=== PATIENT | female | born 1970 | race Caucasian/White ===

== ENCOUNTER → 2016-09-07 | Outpatient (CLI) | payer BC ==
[~2016-09-07] MED LIST: GUAI100S6 PO; IBUP-1105 PO; PRENTAB26 PO; SERT50TA PO
[2016-09-07 10:03] LABS: ALT/SGPT 20 U/L (12-78); BLOOD UREA NITROGEN 9 mg/dl (7-18); BUN/CREATININE RATIO 12.2 (10-20); CALCIUM 8.9 mg/dl (8.5-10.1); CARBON DIOXIDE 27 mmol/L (21-32); CHLORIDE 105 mmol/L (98-107); CHOLESTEROL 231 mg/dl (0-200); GLUCOSE 103 mg/dl (70-99); POTASSIUM 3.8 mmol/L (3.5-5.1); SODIUM 140 mmol/L (136-145)
[2016-09-07 10:06] LABS: ALKALINE PHOSPHATASE 46 U/L (45-117); AST/SGOT 12 U/L (15-37); CHOLESTEROL/HDL RATIO 4.9; HDL CHOLESTEROL 47 mg/dl; LDL CHOLESTEROL CALCULATED 154 mg/dl; TRIGLYCERIDES 152 mg/dl (0-150); VERY LOW DENSITY LIPOPROT CALC 30 mg/dl
== END | disposition home or self-care (01) ==
LOC: C.LAB 08:31
PROVIDERS: ATTEND Nurse Practitioner Family
DX: E78.5 Hyperlipidemia, unspecified (principal); Z13.1 Encounter for screening for diabetes mellitus

== ENCOUNTER → 2017-03-26 | Outpatient (CLI) | payer BC ==
--- NOTE | 2017-03-29 08:02 | MAMMOGRAPHY REPORT ---
BILATERAL DIGITAL SCREENING MAMMOGRAM TOMOSYNTHESIS WITH CAD: 03/26/2017 CLINICAL HISTORY: Routine screening. Patient has no complaints. TECHNIQUE: Breast tomosynthesis in addition to standard 2D mammography was performed. Current study was also evaluated with a Computer Aided Detection (CAD) system. COMPARISON: Comparison is made to exam dated: 08/15/2013 mammogram - [facility]. BREAST COMPOSITION: The tissue of both breasts is almost entirely fatty. FINDINGS: No suspicious masses, calcifications, or areas of architectural distortion are noted in ei ther breast. There has been no significant interval change compared to prior exams. IMPRESSION: ACR BI-RADS CATEGORY 1: NEGATIVE There is no mammographic evidence of malignancy. A 1 year screening mammogram is recommended. The pa tient will receive written notification of the results. Approximately 10% of breast cancers are not detected with mammography. A negative mammographic report should not delay biopsy if a clinically suggestive mass is present. Ana Porras M.D. ah/:03/26/2017 16:10:56 Food Service Clerk: Hollie Jj, [facility] letter sent: Normal 1/2 BI-RADS Code: ACR BI-RADS Category 1: Negative
== END | disposition home or self-care (01) ==
LOC: C.MAMM 13:20
PROVIDERS: ATTEND Obstetrics & Gynecology
DX: Z12.31 Encounter for screening mammogram for malignant neoplasm of breast (principal)

== ENCOUNTER → 2017-07-06 | Outpatient (CLI) | payer OTHER ==
[2017-07-06 11:28] LABS: ALBUMIN 3.8 gm/dl (3.4-5.0); ALT/SGPT 23 U/L (12-78); AST/SGOT 15 U/L (15-37); BLOOD UREA NITROGEN 10 mg/dl (7-18); CALCIUM 9.2 mg/dl (8.5-10.1); CARBON DIOXIDE 26 mmol/L (21-32); CHOLESTEROL 154 mg/dl (0-200); CREATININE 0.65 mg/dl (0.60-1.20); GLUCOSE 104 mg/dl (70-99); SODIUM 137 mmol/L (136-145)
[2017-07-06 11:31] LABS: ALKALINE PHOSPHATASE 48 U/L (45-117); LDL CHOLESTEROL CALCULATED 77 mg/dl; TOTAL PROTEIN 7.4 gm/dl (6.4-8.2)
[2017-07-06 11:36] LABS: HEMOGLOBIN A1C 5.6 % (4.5-5.6)
== END | disposition home or self-care (01) ==
LOC: C.LABBC 08:56
PROVIDERS: ATTEND Nurse Practitioner Family
DX: E78.5 Hyperlipidemia, unspecified (principal); R73.9 Hyperglycemia, unspecified

== ENCOUNTER → 2017-09-17 | Outpatient (CLI) | payer OTHER ==
--- NOTE | 2017-09-17 10:23 | DIAGNOSTIC IMAGING REPORT ---
R KNEE 1 OR 2 VIEWS ROUTINE CLINICAL HISTORY: M25.561 Right knee [id number] pain COMPARISON: None. DISCUSSION: Mild narrowing right medial joint compartment. Several small is bodies posterior to the medial compartment. Minimal reactive osteophytic formation. No significant joint effusion. There is no evidence for soft tissue swelling. IMPRESSION: Mild/moderate degenerative change medial joint compartment with several posterior loose bodies The above report was generated using voice recognition software. It may contain grammatical, syntax or spelling errors. Electronically signed by: Andre Lam M.D. 09/17/2017 10:22 AM Dictated Date/Time: 09/17/2017 10:21 AM
== END | disposition home or self-care (01) ==
LOC: C.RAD 10:04
PROVIDERS: ATTEND Nurse Practitioner Family
DX: M25.561 Pain in right knee (principal); M23.41 Loose body in knee, right knee

== ENCOUNTER 2018-12-30 22:21 | Observation (INO) ==
[2018-12-31 00:40] LABS: Basophils # (auto) 0.04 K/uL (0-0.2); Basophils % (auto) 0.5 %; Eosinophils # (auto) 0.19 K/uL (0-0.5); Eosinophils % (auto) 2.4 %; Hematocrit (blood only) 34.9 % (37-47); Hemoglobin 11.5 g/dL (12.0-16.0); Immature Granulocytes # (auto) 0.02 K/uL (0.00-0.02); Immature Granulocytes % (auto) 0.3 %; Lymphocytes # (auto) 3.09 K/uL (1.2-3.4); Lymphocytes % (auto) 38.8 %; Mean Corpuscular Volume 87.3 fL (80-100); Mean Platelet Volume 10.3 fL (7.4-10.4); Monocytes # (auto) 0.71 K/uL (0.11-0.59); Monocytes % (auto) 8.9 %; Neutrophils # (auto) 3.91 K/uL (1.4-6.5); Neutrophils % (auto) 49.1 %; Platelet Count 247 K/uL (130-400); RDW Coefficient of Variation 13.7 % (11.5-14.5); RDW Standard Deviation 43.9 fL (36.4-46.3); White Blood Count 7.96 K/uL (4.8-10.8)
[2018-12-31 00:55] LABS: INR 1.1 (0.9-1.1); Partial Thromboplastin Time 27.5 Seconds (21.0-31.0); Prothrombin Time 10.8 Seconds (9.0-12.0)
[2018-12-31 01:00] LABS: Alanine Aminotransferase 17 U/L (12-78); Albumin Level 3.4 gm/dl (3.4-5.0); Aspartate Aminotransferase 14 U/L (15-37); BUN Creatinine Ratio 13.9 (10-20); Blood Urea Nitrogen 10 mg/dl (7-18); Calcium 8.5 mg/dl (8.5-10.1); Carbon Dioxide 27 mmol/L (21-32); Chloride 105 mmol/L (98-107); Creatinine Clr Calc Pharmacy 116.9 ml/min; Est GFR (African American) 114.5; Est GFR (Non-African American) 98.8; Glucose 104 mg/dl (70-99); Magnesium 1.9 mg/dl (1.8-2.4); Potassium 3.4 mmol/L (3.5-5.1); Sodium 140 mmol/L (136-145)
[2018-12-31 01:03] LABS: Alkaline Phosphatase 50 U/L (45-117); Bilirubin,Total 0.2 mg/dl (0.2-1); Globulin 3.3 gm/dl (2.5-4.0); Total Protein 6.7 gm/dl (6.4-8.2); Troponin I < 0.015 ng/ml (0-0.045)
[2018-12-31 01:32] LABS: Lyme Ab IgG w/WB Rflx Negative (Negative); Lyme Ab IgM w/WB Rflx Negative (Negative)
--- NOTE | 2018-12-31 04:19 | History & Physical Report ---
Date of Service December 31, 2018 Assessment & Plan (1) Numbness and tingling of left side of face: Acute onset of numbness and tingling of left side of face and left arm numbness- The patient will be admitted to telemetry for serial cardiac enzymes, serial EKG's, cardiac rhythm monitoring and a 2-D echocardiogram with Dopplers. CT head without contrast negative. Order CTA head and neck. Order MRI brain without contrast. Ischemic stroke without TPA protocol. Consult neurology. Present on Admission?: Yes (2) Left arm numbness: As above. (3) Elevated blood-pressure reading without diagnosis of hypertension: Monitor at this time, would not treat. Present on Admission?: Yes (4) Hyperlipidemia: Continue atorvastatin 10 mg daily Present on Admission?: Yes (5) Depression: Continue sertraline 100 mg daily Present on Admission?: Yes History of Present Illness Chief Complaint: The patient presents to the emergency department with acute onset of left maxillary and mandibular numbness, that has been coming and going since onset. Primary Care Provider: Obi Gutierrez III, NICKO The patient is a 48-year-old female who reports acute onset of left maxillary and mandibular numbness several hours prior to arrival to the emergency department. She reports that she also had some transient left forearm and wrist numbness, but did not have any lower extremity involvement. She has not had any recent travels or sick exposures, other than earlier in December at an outdoor gathering, at which, she reports only having been bit by one mosquito. She had no previous occurrence of the symptoms. Allergies Allergy/AdvReac Type Severity Reaction Status Date / Time No Known Allergies Allergy Verified 12/30/18 23:23 Home Medications Home Medications Medication Instructions Recorded Confirmed Type aspirin 81 mg PO DAILY 12/30/18 12/30/18 History atorvastatin 10 mg PO DAILY 12/30/18 12/30/18 History sertraline 100 mg PO DAILY 12/30/18 12/30/18 History Past Med/Surg History Medical History Gestational diabetes (Acute) Supervision of other normal (Acute) Elderly multigravida with antepartum condition or complication (Acute) Beta-hemolytic Streptococcus carrier (Acute 07/12/14) Dehydration (Acute) Syncope (Acute) Viral illness (Acute) HLD (hyperlipidemia) Family History Other Coronary heart disease Dyslipidemia Hypertension Seizure Social History Preferred Language: Armenian Feels Safe at Home: Yes Smoking Status: Never smoker Review of Systems Review of Systems: The patient denies chest pain, palpitations, shortness of breath, dyspnea on exertion, cough, lower extremity swelling, sore throat, fevers, chills, sweats, weight change, fatigue, nausea, vomiting, diarrhea , constipation, abdominal pain, pelvic pain, blood in urine or stool, dysuria, urinary frequency or urgency, lightheadedness, dizziness, headache, memory loss, loss of consciousness, rash, abnormal bruising or bleeding, imbalance, focal or generalized weakness, numbness or tingling in legs, generalized arthralgias or myalgias, back or neck pain, or night sweats. The review of systems is otherwise negative other than for that already noted above, and at least 10 systems have been reviewed. Physical Exam Physical Exam: The patient is awake, alert and oriented 3, well developed and well nourished, normocephalic and atraumatic, lying in bed and in no acute distress. HEENT--PERRL, EOMI, mucous membranes and oropharynx mildly dry. Neck--supple. No JVD. No bruits. Thyroid normal, trachea midline, no adenopathy. Heart--normal S1 and S2. No murmurs, rubs or gallops. Lungs--clear bilaterally, no respiratory distress, no accessory muscle use. Abdomen--normal bowel sounds and soft. Nontender. Nondistended. Obese. Extremities--no cyanosis or clubbing. No edema. There are good distal pulses b/l. Dermatologic--normal skin turgor, normal color, no abnormal lymph nodes, no rash. Neurologic--cranial nerves II through XII grossly intact. Rheumatologic--normal range of motion. Psychiatric--normal affect. Results & Data Vital Signs (Past 12 Hours) Vital Signs Temp Pulse Pulse Resp BP BP Pulse Ox 12/31/18 01:49 75 150/90 H 97 12/30/18 22:23 98.1 F 96 H 18 133/81 96 Laboratory Results Laboratory Results WBC 7.96 K/uL (4.8-10.8) 12/31/18 00:25 RBC 4.00 M/uL (4.2-5.4) L 12/31/18 00:25 Hgb 11.5 g/dL (12.0-16.0) L 12/31/18 00:25 Hct 34.9 % (37-47) L 12/31/18 00:25 MCV 87.3 fL (80-100) 12/31/18 00:25 MCH 28.8 pg (25-34) 12/31/18 00:25 MCHC 33.0 g/dL (32-36) 12/31/18 00:25 RDW Std Deviation 43.9 fL (36.4-46.3) 12/31/18 00:25 RDW Coeff of Valeria 13.7 % (11.5-14.5) 12/31/18 00:25 Plt Count 247 K/uL (130-400) 12/31/18 00:25 MPV 10.3 fL (7.4-10.4) 12/31/18 00:25 Immature Gran % (Auto) 0.3 % 12/31/18 00:25 Neut % (Auto) 49.1 % 12/31/18 00:25 Lymph % (Auto) 38.8 % 12/31/18 00:25 [place] % (Auto) 8.9 % 12/31/18 00:25 Eos % (Auto) 2.4 % 12/31/18 00:25 Baso % (Auto) 0.5 % 12/31/18 00:25 Immature Gran # (Auto) 0.02 K/uL (0.00-0.02) 12/31/18 00:25 Neut # (Auto) 3.91 K/uL (1.4-6.5) 12/31/18 00:25 Lymph # (Auto) 3.09 K/uL (1.2-3.4) 12/31/18 00:25 [place] # (Auto) 0.71 K/uL (0.11-0.59) H 12/31/18 00:25 Eos # (Auto) 0.19 K/uL (0-0.5) 12/31/18 00:25 Baso # (Auto) 0.04 K/uL (0-0.2) 12/31/18 00:25 PT 10.8 Seconds (9.0-12.0) 12/31/18 00:25 INR 1.1 (0.9-1.1) 12/31/18 00:25 APTT 27.5 Seconds (21.0-31.0) 12/31/18 00:25 PTT Ratio 1.0 12/31/18 00:25 Sodium 140 mmol/L (136-145) 12/31/18 00:25 Potassium 3.4 mmol/L (3.5-5.1) L 12/31/18 00:25 Chloride 105 mmol/L (98-107) 12/31/18 00:25 Carbon Dioxide 27 mmol/L (21-32) 12/31/18 00:25 Anion Gap 8.0 (3-11) 12/31/18 00:25 BUN 10 mg/dl (7-18) 12/31/18 00:25 Creatinine 0.73 mg/dl (0.6-1.2) 12/31/18 00:25 Est Cr Clr Drug Dosing 116.9 ml/min 12/31/18 00:25 Est GFR ( Amer) 114.5 12/31/18 00:25 Est GFR (Non-Af Amer) 98.8 12/31/18 00:25 BUN/Creatinine Ratio 13.9 (10-20) 12/31/18 00:25 Glucose 104 mg/dl (70-99) H 12/31/18 00:25 POC Glucose 111 (70-99) H 12/30/18 23:58 Calcium 8.5 mg/dl (8.5-10.1) 12/31/18 00:25 Magnesium 1.9 mg/dl (1.8-2.4) 12/31/18 00:25 Total Bilirubin 0.2 mg/dl (0.2-1) 12/31/18 00:25 AST 14 U/L (15-37) L 12/31/18 00:25 ALT 17 U/L (12-78) 12/31/18 00:25 Alkaline Phosphatase 50 U/L (45-117) 12/31/18 00:25 Troponin I < 0.015 ng/ml (0-0.045) 12/31/18 00:25 Total Protein 6.7 gm/dl (6.4-8.2) 12/31/18 00:25 Albumin 3.4 gm/dl (3.4-5.0) 12/31/18 00:25 Globulin 3.3 gm/dl (2.5-4.0) 12/31/18 00:25 Albumin/Globulin Ratio 1.0 (0.9-2) 12/31/18 00:25 Lyme Disease IgG Ab Negative (Negative) 12/31/18 00:25 Lyme Disease IgM Ab Negative (Negative) 12/31/18 00:25 Blood Type A Positive 12/31/18 00:25 Antibody Screen NEGATIVE 12/31/18 00:25 Code Status & VTE Plan Code Status Full code VTE Prophylaxis Plan VTE Prophylaxis will be ordered: Yes PG Care Time/CCT Total # of Minutes Spent Total Time Spent with Patient: Total time spent is greater than 50% in coordination of care (as documented) at patient's floor/unit and/or counseling patient:
[2018-12-31] MEDS ORDERED: ONDANSETRON INJ 2 MG/ML 2 ML VIAL IV PRN (04:35)
[2018-12-31] MEDS ORDERED: ACETAMINOPHEN 325 MG TAB PO PRN (04:35)
[2018-12-31] MEDS ORDERED: MAGNESIUM HYDROXIDE SUSP 30 ML UDC PO PRN (04:35)
[2018-12-31] MEDS ORDERED: ALUMINUM/MAGNESIUM SUSP 30 ML UDC PO PRN (04:35)
[2018-12-31] MEDS ORDERED: PHARMACIST DISCHARGE MED REC CONSULT PRN (04:35)
[2018-12-31] MEDS ORDERED: OPTIRAY 320 125ml IV PRN (05:12)
[2018-12-31 05:26] LABS: BUN Creatinine Ratio 13.7 (10-20); Calcium 8.6 mg/dl (8.5-10.1); Creatinine Clr Calc Pharmacy 124.2 ml/min; Est GFR (Non-African American) 104.4; Potassium 3.5 mmol/L (3.5-5.1)
--- NOTE | 2018-12-31 06:23 | CT Scan Report ---
CT head/brain wo con CLINICAL HISTORY: 48 years-old Female presenting with Stroke evaluation, left facial numbness. TECHNIQUE: Multidetector CT imaging of the head was performed without the use of intravenous contrast . IV contrast: None. One or more dose lowering techniques were used consistent with the principles of ALARA (as low as reasonably achievable), including automatic exposure control, mA or kV adjustment t o individual patient size, and/or use of iterative reconstruction. COMPARISON: None. CT DOSE (mGy.cm): The estimated cumulative dose is 614.27 mGy.cm. FINDINGS: Undercoat Sprayer topogram: Unremarkable. Ventricles and sulci normal in size. No hemorrhage. Brain parenchyma normal in appearance with preser nora brandon-white differentiation. No acute territorial infarct. No mass effect or midline shift. No ext ra-axial fluid collection. Paranasal sinuses and mastoid air cells clear. Calvarium intact. IMPRESSION: 1. No acute intracranial abnormality. Electronically signed by: Danis Smith M.D. 12/31/2018 6:22 AM
--- NOTE | 2018-12-31 06:59 | Emergency Department Note ---
Entered by Fran Michele acting as a scribe for History of Present Illness General Chief complaint: Neuro Symptoms/Deficit Stated complaint: NUMBNESS IN FACE Time Seen by Provider: 12/30/18 23:22 Source: patient History of Present Illness Provider complaint: Facial numbness Onset (ago): hour(s) 3 Location: face Pain Consistency: + constant and + now resolved Maximum Pain Intensity: 0 Quality: + other (Tingling, numbness) Relieved By: + none Exacerbated By: + none Associated symptoms: + other (Negative abdominal pain) The patient is a 48 year old female who presents to the Emergency Room with complaints of constant facial numbness that started about 3 hours ago. The patient states the numbness and tingling started randomly while she was doing housework. She reports that she had tongue numbness as well that made drinking water taste "weird". The patient states the numbness is in her left cheek and t racks up the just inferior to her left eye. The patient compared the feeling to getting Novocain. She also mentioned that en route to the hospital she started having left forearm numbness, but this has since resolved. The patient denies having trouble moving or speaking as well as being under any excessive stress. She did note that as she was leaving she dropped her ring, but states she was worried at the time. The patient did mention that her sister has a history of a brain tumor and her mother has a irregularity with her dura mater. The patient also has a family history of HLD, HTN, CAD, and seizures. The patient denies any recent tick bites as well as any abdominal pain. She has a history of HLD but no HTN or diabetes. Home Medications Home Medications Medication Instructions Recorded Confirmed Type aspirin 81 mg PO DAILY 12/30/18 12/30/18 History atorvastatin 10 mg PO DAILY 12/30/18 12/30/18 History sertraline 100 mg PO DAILY 12/30/18 12/30/18 History Allergies Allergy/AdvReac Type Severity Reaction Status Date / Time No Known Allergies Allergy Verified 12/30/18 23:23 Past Med/Surg History Medical History Gestational diabetes (Acute) Supervision of other normal (Acute) Elderly multigravida with antepartum condition or complication (Acute) Beta-hemolytic Streptococcus carrier (Acute 07/12/14) Dehydration (Acute) Syncope (Acute) Viral illness (Acute) HLD (hyperlipidemia) Family History Other Coronary heart disease Dyslipidemia Hypertension Seizure Social History Preferred Language: Kyrgyz Communication Ability: Effective Beliefs That Will Affect Care: None Current Living Situation: Spouse and Family Feels Safe at Home: Yes Smoking Status: Never smoker Second Hand Exposure: No Hx Alcohol Use: No Hx Substance Use: No Review of Systems See HPI for pertinent positives & negatives. and A total of 10 systems reviewed and were otherwise negative Physical Exam Vital Signs Vital Signs - 24 hr 12/30/18 22:23 12/31/18 01:46 12/31/18 01:49 Temperature 36.7 C Temperature Source Oral Sepsis Recent Fever Within 48 Hours No Sepsis New/Unexplained Change in Mental Status No Sepsis Action Taken by Nursing No Action Required Pulse Rate 96 H Pulse Rate [Left Finger] 75 Pulse Rate from SpO2 Sensor Respiratory Rate 18 Blood Pressure 133/81 150/90 H Blood Pressure [Right Arm] 150/90 H Blood Pressure Mean 98 110 Blood Pressure Mean [Right Arm] 110 Pulse Oximetry 96 97 Oxygen Delivery Method Room Air 12/31/18 03:29 Temperature Temperature Source Sepsis Recent Fever Within 48 Hours Sepsis New/Unexplained Change in Mental Status Sepsis Action Taken by Nursing Pulse Rate 72 Pulse Rate [Left Finger] Pulse Rate from SpO2 Sensor 71 Respiratory Rate 17 Blood Pressure 160/100 H Blood Pressure [Right Arm] Blood Pressure Mean 120 Blood Pressure Mean [Right Arm] Pulse Oximetry 98 Oxygen Delivery Method HEENT: Head - normocephalic and atraumatic. Pupils are equal, round, and reactive to light. Extraocular eye muscles are intact and sclera are anicteric. Ears - bilaterally patent canals with noninjected tympanic membranes and no evidence of hemotympanum. Nose - moist nasal mucosa without discharge. Mouth - moist buccal mucosa. Oropharynx is nonerythematous and there is no tonsillar exudate or edema noted. Neck: Supple; no JVD, nuchal rigidity, cervical lymphadenopathy. Heart: Regular rate and rhythm. There is a normal S1 and S2 with no murmurs, clicks, or gallops appreciated. Lungs: Clear to auscultation bilaterally with no wheezes, rales, or rhonchi. Abdomen: Soft, completely nontender, nondistended, with good bowel sounds. There are no palpable pulsatile masses or hepatosplenomegaly. There is no guarding, rigidity, or rebound noted. Extremities: No evidence of cyanosis, clubbing, or edema. There are easily palpable peripheral pulses. Neuro: The patient is awake and alert, oriented to day, time, and place. Muscle strength is 5/5 in all 4 extremities. 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 Decreased sensation in the left nasolabial fold. There are no cerebellar signs. Cranial nerves 2-12 are intact. Course 2332: Past medical records reviewed. The patient was evaluated in room A02, and a complete history and physical examination were performed. The patient will go for CT scan of the brain. She was monitored on the pulse oximeter and cardiac rehabilitation program director. 0200: I reevaluated the patient and she still has some left sided facial numbness and now has the numbness back in her left forearm. 0240: I updated the patient on results and the treatment plan. She fully understands and is agreeable with the plan. [facility] hospitalist service was paged and Dr. Rosales - [facility] Hospitalist was made aware of the patient. He will be accepting her for further evaluation. Administered Medications Ioversol (Optiray 320 125ml) 119 ml IV ONCE PRN PRN Reason: Interaction Checking Stop: 01/04/19 05:11 Last Admin: 12/31/18 05:13 Dose: 1 ml Documented by: [id number] Medical Decision Making Differential Diagnosis The patient is a 48 year old female who presents to the Emergency Room with complaints of constant facial numbness that started about 3 hours ago. Differential diagnosis includes Stroke, TIA, Hypoglycemia, Anxiety, Vertigo, ICH, Lyme's disease, and Cerrato's Palsy, amongst others. Medical Records Attestation: I reviewed the patient's medical records. Home Medications Current Medication List: was personally reviewed by me Laboratory Data Attestation: I reviewed the patient's lab results. Result diagrams: 12/31/18 00:25 12/31/18 04:52 Lab Results 12/30/18 12/31/18 12/31/18 Range/Units 23:58 00:25 00:25 WBC 7.96 (4.8-10.8) K/uL RBC 4.00 L (4.2-5.4) M/uL Hgb 11.5 L (12.0-16.0) g/dL Hct 34.9 L (37-47) % MCV 87.3 (80-100) fL MCH 28.8 (25-34) pg MCHC 33.0 (32-36) g/dL RDW Std Deviation 43.9 (36.4-46.3) fL RDW Coeff of Valeria 13.7 (11.5-14.5) % Plt Count 247 (130-400) K/uL MPV 10.3 (7.4-10.4) fL Immature Gran % (Auto) 0.3 % Neut % (Auto) 49.1 % Lymph % (Auto) 38.8 % [place] % (Auto) 8.9 % Eos % (Auto) 2.4 % Baso % (Auto) 0.5 % Immature Gran # (Auto) 0.02 (0.00-0.02) K/uL Neut # (Auto) 3.91 (1.4-6.5) K/uL Lymph # (Auto) 3.09 (1.2-3.4) K/uL [place] # (Auto) 0.71 H (0.11-0.59) K/uL Eos # (Auto) 0.19 (0-0.5) K/uL Baso # (Auto) 0.04 (0-0.2) K/uL PT 10.8 (9.0-12.0) Seconds INR 1.1 (0.9-1.1) APTT 27.5 (21.0-31.0) Seconds PTT Ratio 1.0 Sodium (136-145) mmol/L Potassium (3.5-5.1) mmol/L Chloride (98-107) mmol/L Carbon Dioxide (21-32) mmol/L Anion Gap (3-11) BUN (7-18) mg/dl Creatinine (0.6-1.2) mg/dl Est Cr Clr Drug Dosing ml/min Est GFR ( Amer) Est GFR (Non-Af Amer) BUN/Creatinine Ratio (10-20) Glucose (70-99) mg/dl POC Glucose 111 H (70-99) Calcium (8.5-10.1) mg/dl Magnesium (1.8-2.4) mg/dl Total Bilirubin (0.2-1) mg/dl AST (15-37) U/L ALT (12-78) U/L Alkaline Phosphatase (45-117) U/L Troponin I (0-0.045) ng/ml Total Protein (6.4-8.2) gm/dl Albumin (3.4-5.0) gm/dl Globulin (2.5-4.0) gm/dl Albumin/Globulin Ratio (0.9-2) Lyme Disease IgG Ab (Negative) Lyme Disease IgM Ab (Negative) Blood Type Antibody Screen 12/31/18 12/31/18 12/31/18 Range/Units 00:25 00:25 00:25 WBC (4.8-10.8) K/uL RBC (4.2-5.4) M/uL Hgb (12.0-16.0) g/dL Hct (37-47) % MCV (80-100) fL MCH (25-34) pg MCHC (32-36) g/dL RDW Std Deviation (36.4-46.3) fL RDW Coeff of Valeria (11.5-14.5) % Plt Count (130-400) K/uL MPV (7.4-10.4) fL Immature Gran % (Auto) % Neut % (Auto) % Lymph % (Auto) % [place] % (Auto) % Eos % (Auto) % Baso % (Auto) % Immature Gran # (Auto) (0.00-0.02) K/uL Neut # (Auto) (1.4-6.5) K/uL Lymph # (Auto) (1.2-3.4) K/uL [place] # (Auto) (0.11-0.59) K/uL Eos # (Auto) (0-0.5) K/uL Baso # (Auto) (0-0.2) K/uL PT (9.0-12.0) Seconds INR (0.9-1.1) APTT (21.0-31.0) Seconds PTT Ratio Sodium 140 (136-145) mmol/L Potassium 3.4 L (3.5-5.1) mmol/L Chloride 105 (98-107) mmol/L Carbon Dioxide 27 (21-32) mmol/L Anion Gap 8.0 (3-11) BUN 10 (7-18) mg/dl Creatinine 0.73 (0.6-1.2) mg/dl Est Cr Clr Drug Dosing 116.9 ml/min Est GFR ( Amer) 114.5 Est GFR (Non-Af Amer) 98.8 BUN/Creatinine Ratio 13.9 (10-20) Glucose 104 H (70-99) mg/dl POC Glucose (70-99) Calcium 8.5 (8.5-10.1) mg/dl Magnesium 1.9 (1.8-2.4) mg/dl Total Bilirubin 0.2 (0.2-1) mg/dl AST 14 L (15-37) U/L ALT 17 (12-78) U/L Alkaline Phosphatase 50 (45-117) U/L Troponin I < 0.015 (0-0.045) ng/ml Total Protein 6.7 (6.4-8.2) gm/dl Albumin 3.4 (3.4-5.0) gm/dl Globulin 3.3 (2.5-4.0) gm/dl Albumin/Globulin Ratio 1.0 (0.9-2) Lyme Disease IgG Ab Negative (Negative) Lyme Disease IgM Ab Negative (Negative) Blood Type A Positive Antibody Screen NEGATIVE Imaging Data Radiologist's Impression: Radiology results as stated below per my review and the radiologist's interpretation: CT HEAD Negative Radiologist: Noe Pal MD Study ready at 02:21 and initial results transmitted at 02:31 ECG Data Attestation: I personally reviewed and interpreted this ECG as follows: Indication: other (Numbness) Rate (beats per minute): 80 Rhythm: normal sinus Findings: no PAC, no PVC and no acute ischemic change Blood Pressure Blood Pressure Findings: Elevated blood pressure Blood Pressure Disposition: further management by hospitalist [facility] Narrative The patient is a 48 year old female who presents to the Emergency Room with complaints of constant facial numbness that started about 3 hours ago. Patient also has left forearm numbness intermittently. I was concerned for the possibility of an acute stroke versus TIA. We also discussed Cerrato's palsy. Lyme testing was negative and with the left upper extremity involvement, I did not believe that this was the cause. The patient does have a history of familial hypercholesterolemia and is hypertensive at this time. I discussed the case with the [facility] Hospitalist and they will evaluate for further management. Impression & Plan Numbness and tingling of left side of face, Left arm numbness, Hypertension Discharge Plan Visit Data *Final* Discharge Date/Time: 12/31/18 04:17 Chief Complaint: Neuro Symptoms/Deficit Stated Complaint: NUMBNESS IN FACE ED Provider: Marlin Parker Discharge Problem: Numbness and tingling of left side of face, Left arm numbness, Hypertension Patient Disposition: Admitted As Inpatient Discharge Instructions Interventions: ED Discharge Assessment Last Done: 12/31/18 04:17 Discharge Problem: Hypertension Qualifiers: Hypertension type: unspecified Qualified Code(s): I10 - Essential (primary) hypertension The scribe's documentation has been prepared under my direction and personally reviewed by me in its entirety. I confirm that the note above accurately reflects all work, treatment, procedures, and medical decision making performed by me.
[2018-12-31 07:18] LABS: Estimated Average Glucose 123 mg/dl; Hemoglobin A1C 5.9 % (4.5-5.6)
--- NOTE | 2018-12-31 08:23 | CT Scan Report ---
CT angio neck with con CLINICAL HISTORY: 48 years-old Female presenting with left facial and left arm numbness. TECHNIQUE: Multidetector CT angiography of the neck was performed after the administration of intrave nous contrast. 3-D volumetric and/or maximum intensity projection (MIP) images were subsequently raman nstructed for review. IV contrast: 119 mL of Optiray 320. One or more dose lowering techniques were u sed consistent with the principles of ALARA (as low as reasonably achievable), including automatic ex posure control, mA or kV adjustment to individual patient size, and/or use of iterative reconstructio n. Stenosis measurements were based on NASCET-like criteria (distal lumen diameter as the denominator for stenosis measurement). COMPARISON: None. CT DOSE (mGy.cm): The estimated cumulative dose is 545.17. FINDINGS: Manufacturing Quality Inspector topogram: Unremarkable. Aortic arch: Normal three-vessel aortic arch with patent origins of the branch vessels. Innominate artery: Patent. Right subclavian artery: Patent. Right common carotid artery: Patent. Right internal and external carotid arteries: Right carotid bifurcation patent. Right internal and ex ternal carotid arteries widely patent. Left common carotid artery: Patent. Left internal and external carotid arteries: Left carotid bifurcation patent. Left internal and exter nal carotid arteries widely patent. Left subclavian artery: Patent. Vertebral arteries: Codominant vertebral arteries. Origins and courses of the bilateral vertebral art eries patent. Other: Limited intracranial evaluation within normal limits. Soft tissues of the neck normal allowing for the phase of contrast. Degenerative changes of the cervical spine. Lung apices clear. IMPRESSION: 1. No evidence of dissection, focal vessel occlusion, or significant stenosis of the cervical arteri es. Electronically signed by: Danis Smith M.D. 12/31/2018 8:22 AM
--- NOTE | 2018-12-31 08:27 | CT Scan Report ---
CT angio head w con CLINICAL HISTORY: 48 years-old Female presenting with left facial and left arm numbness. TECHNIQUE: Multidetector CT angiography of the head was performed after the administration of intrave nous contrast. 3-D volumetric and/or maximum intensity projection (MIP) images were subsequently raman nstructed for review. IV contrast: 119 mL of Optiray 320. One or more dose lowering techniques were u sed consistent with the principles of ALARA (as low as reasonably achievable), including automatic ex posure control, mA or kV adjustment to individual patient size, and/or use of iterative reconstructio n. COMPARISON: None. CT DOSE (mGy.cm): The estimated cumulative dose is 545.17 mGy.cm. FINDINGS: [employer] topogram: Unremarkable. Anterior circulation: Intracranial portions of the internal carotid arteries patent to the level of t he termini. Anterior cerebral arteries patent. Middle cerebral arteries patent. Anterior communicatin g artery patent. Posterior circulation: Codominant vertebral arteries. Intradural portions of the vertebral arteries p atent. Posterior inferior cerebellar arteries patent. Basilar artery patent. Anterior inferior cerebe llar arteries poorly visualized. Superior cerebellar arteries patent. Posterior cerebral arteries pat ent. Right posterior communicating artery (P-comm) patent. Left P-comm hypoplastic or aplastic. Dural venous sinuses: Patent. Other: Allowing for the phase of contrast, brain parenchyma within normal limits. Calvarium intact. IMPRESSION: 1. No evidence of aneurysm, focal vessel occlusion, or significant stenosis of the intracranial clifford socrates. Electronically signed by: Danis Smith M.D. 12/31/2018 8:25 AM
[2018-12-31] MEDS ORDERED: SERTRALINE HCL 100 MG TABLET PO SCH (09:00)
[2018-12-31] MEDS ORDERED: ASPIRIN 81 MG ECTAB PO SCH (09:00)
[2018-12-31] MEDS ORDERED: ATORVASTATIN 10 MG TAB PO SCH (09:00)
--- NOTE | 2018-12-31 10:28 | Magnetic Resonance Report ---
MR brain wo con CLINICAL HISTORY: 48 years-old Female presenting with sudden onset left facial numbness yesterday michael vincent. TECHNIQUE: Multisequence, multiplanar MR imaging of the brain was performed without the use of intrav enous contrast. IV contrast: None. COMPARISON: None. FINDINGS: Localizer images: Unremarkable. Normal midline sagittal structures. Ventricles and sulci normal in size. No restricted diffusion or h emorrhage. Brain parenchyma normal in appearance with preserved brandon-white differentiation. No mass e ffect or midline shift. No extra-axial fluid collection. T2 skull base flow voids preserved. Bone marrow signal intensity within the calvarium within normal limits. IMPRESSION: 1. No acute intracranial abnormality. Electronically signed by: Danis Smiht M.D. 12/31/2018 10:26 AM
[2018-12-31] MEDS ORDERED: STROKE PATIENT DISCHARGE STA (13:08)
--- NOTE | 2018-12-31 13:43 | Discharge Summary ---
Date of Service December 31, 2018 Admission HPI Per Admitting Provider The patient is a 48-year-old female who reports acute onset of left maxillary and mandibular numbness several hours prior to arrival to the emergency department. She reports that she also had some transient left forearm and wrist numbness, but did not have any lower extremity involvement. She has not had any recent travels or sick exposures, other than earlier in December at an outdoor gathering, at which, she reports only having been bit by one mosquito. She had no previous occurrence of the symptoms. Principal Diagnosis Left facial numbness Discharge Exam Constitutional WD/WN, vitals as above Eyes PERRL, conjunctivae normal, anicteric sclerae ENMT external ear and nose normal, oropharynx normal Neck trachea midline, no thyromegaly Respiratory normal respiratory effort, lungs clear to auscultation Cardiovascular RRR, no murmur, no edema Gastrointestinal (Abdomen) normal bowel sounds, soft, nontender, no hepatosplenomegaly Musculoskeletal no cyanosis or clubbing, extremities motor strength 5/5 Skin no rashes, warm and dry Neurologic patellar DTR's 2+ bilat, sensation intact (left nasal fold numbness) and PERRL, EOMI, accommodation nl, no face palsy, no dysarthria (can puff out cheeks, wrinkle forehead, tongue midline, no facial droop) Psychiatric A+Ox3, euthymic affect Lymphatic no cervical or axillary lymphadenopathy Discharge Data Allergies Allergy/AdvReac Type Severity Reaction Status Date / Time No Known Allergies Allergy Verified 12/30/18 23:23 Consultations 12/31/18 03:03 ED Decision to Admit Stat 12/31/18 04:35 Consult Case Management - Discharge Planning Routine Consult Case Management - Discharge Planning Routine Ordered Studies 12/30/18 23:43 CT head/brain wo con Urgent 12/31/18 03:46 MR brain wo con Routine 12/31/18 04:14 CT angio head w con Urgent CT angio neck with con Urgent Hospital Course (1) Numbness and tingling of left side of face: Acute onset of numbness and tingling of left side of face and left arm numbness still with some mild numbness left nasal fold and perioral but distribution is smaller no numbness in left arm MRI brain normal, no ischemic stroke CT angiogram head and neck normal, echo is done and pending results differential would be very small ischemic stroke, left facial nerve palsy, atypical migraine never had a headache so doubt migraine no progression of symptoms, no signs of motor palsy so doubt Cerrato's palsy stroke like symptoms and possible small ischemic stroke seems most likely discussed with Dr. Lucas over the phone, not formally consulted, no further testing would be recommended at this time will continue aspirin 81mg daily, Lipitor 10mg daily, start Lisinopril for better BP control follow up with Obi Gutierrez in one week (2) Left arm numbness: As above. symptoms resolved over night, not present at time of discharge (3) Elevated blood-pressure reading without diagnosis of hypertension: systolic pressure improved this morning, on admission readings consistently in 160's which is abnormal for her however, diastolic BP still consistently above 90 will start on Lisinopril 10mg daily, recommend follow up with Obi Gutierrez this week for BP check (4) Hyperlipidemia: Continue atorvastatin 10 mg daily LDL at goal of 77 (5) Depression: Continue sertraline 100 mg daily Total Time Total Time Spent Total Time Spent (In Minutes): 35 minutes Total Time Includes: Examination of the Patient, Discharge Planning, Medication Reconciliation and Communication With Other Providers (Dr. Lucas) Discharge Plan Discharge Items Patient Disposition: Home - Self-Care Reason For Visit: LEFT FACIAL NUMBNESS Discharge Diagnosis: Left facial numbness stroke like symptoms, normal MRI brain Elevated blood pressure Condition: Good Discharge Goals: Improve disease control and Improve function Activity: Resume your previous activity Non-emergency contact: Primary Care Provider Call non-emergency contact if: you have any medication questions, your symptoms worsen and you have a fever Follow-up/Referrals: Obi Gutierrez III, CRNP [Primary Care Provider] - Diet: Heart Healthy Addtl Provider Instructions: Medications: continue prior medications - LISINOPRIL: 10mg daily, blood pressure medication Left facial numbness, improving differential would be very small stroke, facial palsy, atypical migraine MRI brain normal, no signs of stroke CT angiogram head and neck normal typically would see some progression of symptoms if this was a facial nerve palsy typically would have headache by now if this was migraine looking at risk factors for stroke, you are well managed LDL cholesterol is 77, continue Lipitor already on aspirin 81mg blood pressure typically well controlled, some elevations during admission higher pressures can be consistent with stroke start on Lisinopril 10mg daily, follow up with bOi Gutierrez HbA1c is 5.9%, no evidence of diabetes discussed case with Dr. Lucas with neurology, no further testing echocardiogram was done, results pending, would call if anything abnormal but this is highly unlikely FOLLOW UP - Obi Gutierrez in one week, call on Wednesday for appt Risk Factors for Stroke: You can reduce your chances of stroke by working with your medical provider to adopt a healthy lifestyle. Some specific ways to lower your chance of stroke are: * If you are a smoker, now is the time to stop smoking cigarettes * If you are diabetic, improve the control of your blood sugars * Avoid excessive amounts of alcohol * Control high blood pressure * Lose weight if you are overweight * Be sure to lead an active lifestyle * Eat a healthy diet low in salt, cholesterol and fat You should know about other risk factors for stroke that you are unable to control. These include: * Age 55 years or older * Male gender * Certain racial groups: , or / * Family History of Stroke, Mini stroke or Heart Attack * Sickle Cell Disease Follow Up: It is important for you to keep your follow up appointments with your medical provider. Who to Call and When: Medical Emergencies: Call 911 immediately if you experience any of the following warning signs and symptoms of Stroke: * Sudden numbness or weakness of the face, arm or leg, especially on one side of the body * Sudden confusion, trouble speaking or understanding * Sudden trouble seeing in one or both eyes * Sudden trouble walking, dizziness, loss of balance or coordination * Sudden severe headache with no cause Do not delay calling 911 if you experience any warning signs or symptoms of a stroke. Delay in seeking medical attention may affect what treatments can be given to you. . Prescriptions: New lisinopril 10 mg tablet 10 mg PO DAILY Qty: 30 RF: 0 Continued atorvastatin 10 mg tablet 10 mg PO DAILY RF: 0 sertraline 100 mg tablet 100 mg PO DAILY RF: 0 aspirin 81 mg Tablet,Delayed Release (Dr/Ec) 81 mg PO DAILY RF: 0 Stand-Alone Forms: [facility] Discharge Orders: Discharge Order (Routine); Ordered 12/31/18 Ordered By: Kris Weaver Admission Data Admit Date/Time: 12/31/18 03:45 Attending Provider: Kris Weaver Admit Provider: Hernan Rosales Primary Care Provider: Obi Gutierrez III Other Providers: Hernan Rosales Service: Telemetry Other Interventions: Discharge Summary Assessment (RN) Last Done: 12/31/18 13:12 Pending Studies at Discharge: Yes Studies:: echocardiogram, follow up with Obi Gutierrez for results
== END 2018-12-31 14:08 | disposition home or self-care (01) ==
LOC: 1E 22:21 → ED 22:21 → SUATTDRO 12-31 03:45 → 1E 12-31 04:17

== ENCOUNTER 2022-10-31 15:49 | Observation (INO) ==
[2022-10-31] MEDS ORDERED: ONDANSETRON INJ 2 MG/ML 2 ML VIAL IV STA (16:45)
[2022-10-31] MEDS ORDERED: HYDROmorphone INJ 1 MG/ML SYRINGE IV STA (16:45)
--- NOTE | 2022-10-31 16:50 | Emergency Department Note ---
History of Present Illness General Chief complaint: Hip Pain Stated complaint: LEFT HIP PAIN Time Seen by Provider: 10/31/22 16:09 History of Present Illness Maximum Pain Intensity: 8 This is a 52-year-old female that presents to the emergency department via private vehicle accompanied by and daughter with complaints of "left hip pain". The patient notes for the past 4 weeks she has been experiencing left low back pain/left hip pain that radiates into her left leg. She notes progressive symptoms since that time. Pain is worse with movement and mildly better with rest. She [facility] with continued symptoms. She does note recent injection to the left hip/low back area which was a steroid. No oral steroids. She notes severe pain today to the point where she cannot walk. Her left foot is numb. She did note she was incontinent of stool about 2-1/2 weeks ago. She notes she accidentally urinated a little bit today but she believes this to be secondary to pain. She notes left foot numbness. No abdominal pain. No recent infection or infectious symptoms. No fevers or history of L-spine surgery. Home Medications Medication Instructions Recorded Confirmed Type aspirin 81 mg tablet,delayed 81 mg PO DAILY 12/30/18 10/31/22 History release atorvastatin 10 mg tablet 10 mg PO DAILY #90 tabs 11/29/19 10/31/22 Rx sertraline 100 mg tablet 100 mg PO DAILY #90 tabs 03/22/20 10/31/22 Rx levothyroxine 50 mcg tablet 50 mcg PO QAM 10/31/22 10/31/22 History losartan 25 mg tablet 25 mg PO DAILY 10/31/22 10/31/22 History omega-3 fatty acids 1,250 mg 1,250 mg PO DAILY 10/31/22 10/31/22 History capsule Allergies Allergy/AdvReac Type Severity Reaction Status Date / Time No Known Drug Allergies Allergy Verified 10/31/22 18:31 Past Med/Surg History Medical History Beta-hemolytic Streptococcus carrier (07/12/14) Dehydration Elderly multigravida with antepartum condition or complication Gestational diabetes HLD (hyperlipidemia) Polycystic ovarian syndrome Post depression Supervision of other normal Syncope Viral illness Surgical History S/P wisdom tooth extraction Family History Father Hypertension Hyperlipidemia Grandfather Coronary heart disease Grandmother Uterine cancer Grandfather Prostate cancer Sister Thalassemia Brother Klinefelter syndrome Other Dyslipidemia Seizure Denies family history of Ovarian cancer Breast cancer Colorectal cancer Social History Smoking Status: Never smoker Second Hand Exposure: No; Do You Dip or Chew Tobacco: No; Tobacco Cessation Education Requested by Patient: No Hx Alcohol Use: No Hx Substance Use: No Preferred Language: Kuwaiti Communication Ability: Effective Signal Worker Required: No Beliefs That Will Affect Care: None marital status: Current Living Situation: Family Other Information That Helps Us Care for You: No Feels Safe at Home: Yes Safety Concerns: Feels Safe At This Time Assistive Devices: Glasses Assistive Devices Comment: reading glasses Review of Systems A total of 10 systems reviewed and were otherwise negative Physical Exam Vital Signs Vital Signs - 24 hr 10/31/22 16:01 Temperature 36.8 C Temperature Source Temporal Artery Scan Pulse Rate 88 Respiratory Rate 18 Blood Pressure 129/77 Blood Pressure Mean 94 Pulse Oximetry 97 Oxygen Delivery Method Room Air Sepsis Recent Fever Within 48 Hours No Sepsis New/Unexplained Change in Mental Status No Sepsis Action Taken by Nursing No Action Required VITAL SIGNS - Vital signs and triage nursing notes were reviewed. Stable and afebrile. GENERAL -52-year-old female appearing her stated age who is in no acute distress. Communicates well with provider and answers questions appropriately. SKIN - Without rashes. No meningeal or petechial rash. No herpetic lesions. HEAD - NC/AT. EYES - Sclera anicteric. NECK - No nuchal rigidity. LUNGS -clear to auscultation. CARDIAC -regular rate and rhythm. ABDOMEN - Abdominal contour normal without pulsations or visible masses. BS normoactive all four quadrants. No tenderness, palpable masses, hepatosplenomegaly, or ascites noted. EXTREMITIES - No clubbing or peripheral cyanosis. Patient is tender throughout the left low back region. Sensory intact left lower extremity but does report numbness when palpating the dorsal left foot region. Cap refill of the toes of the left foot within normal limits. Preserved active range of motion of left lower extremity. Patient able to plantarflex and dorsiflex the bilateral lower extremities at the foot/ankle. No foot drop. Patient is not able to actively straight leg raise the left leg and straight leg raise on the right reproduces discomfort to the left low back. NEUROLOGIC - Cranial nerves II through XII grossly intact. PSYCH - A&Ox3 and cooperates fully with examiner. Pt is very pleasant and interacts well with examiner. Course Administered Medications Acetaminophen (Acetaminophen 500 Mg Tab) 1,000 mg PO Q8H [facility] Stop: 11/30/22 21:59 Last Admin: 11/01/22 06:11 Dose: 1,000 mg Documented By: Admin: 10/31/22 21:46 Dose: 1,000 mg Documented By: Aspirin (Aspirin 81 Mg Ectab) 81 mg PO [facility] Stop: 11/30/22 20:59 Last Admin: 10/31/22 21:45 Dose: 81 mg Documented By: Atorvastatin Calcium (Atorvastatin 10 Mg Tab) 10 mg PO [facility] Stop: 11/30/22 20:59 Last Admin: 10/31/22 21:45 Dose: 10 mg Documented By: Cyclobenzaprine HCl (Cyclobenzaprine Hcl 5 Mg Tab) 5 mg PO Q8H PRN PRN Reason: spasms Stop: 11/30/22 20:52 Last Admin: 11/01/22 08:40 Dose: 5 mg Documented By: ARNOLDO Enoxaparin Sodium (Enoxaparin Inj 40 Mg/0.4 Ml Syr) [facility] Stop: 12/01/22 08:59 Last Admin: 11/01/22 07:32 Dose: 40 mg Documented By: ARNOLDO Dexamethasone 8 mg/ Syringe 2 mls @ 1 mls/min IV Q8H [facility] Stop: 11/30/22 21:59 Last Admin: 11/01/22 06:11 Dose: 1 mls/min Documented By: Admin: 10/31/22 21:44 Dose: 1 mls/min Documented By: Levothyroxine Sodium (Levothyroxine Sodium 50 Mcg Tablet) 50 mcg PO DAILYBB [facility] Stop: 12/01/22 06:29 Last Admin: 11/01/22 06:11 Dose: 50 mcg Documented By: Lidocaine (Lidocaine 5% 1 Patch) 1 patch [facility] Stop: 12/01/22 08:59 Last Admin: 11/01/22 07:31 Dose: 1 patch Documented By: ARNOLDO Losartan Potassium (Losartan Potassium 25 Mg Tab) 25 mg PO [facility] Stop: 11/30/22 20:59 Last Admin: 10/31/22 21:44 Dose: 25 mg Documented By: Miscellaneous (Remove Lidoderm Patch) 1 each N/A DAILY@2100 [facility] Stop: 12/01/22 00:00 Last Admin: 10/31/22 23:57 Dose: 1 each Documented By: Pantoprazole Sodium (Pantoprazole 40 Mg Tab) 40 mg PO [facility] Stop: 12/01/22 08:59 Last Admin: 11/01/22 07:32 Dose: 40 mg Documented By: ARNOLDO Sertraline HCl (Sertraline Hcl 100 Mg Tablet) 100 mg PO [facility] Stop: 11/30/22 20:59 Last Admin: 10/31/22 21:44 Dose: 100 mg Documented By: Discontinued Medications Dexamethasone Sodium Phosphate (DexamethasonePf 10 Mg/Ml Vial) 10 mg IV NOW ONE Stop: 10/31/22 18:23 Last Admin: 10/31/22 18:29 Dose: 10 mg Documented By: DENIZ Diazepam (Diazepam 2 Mg Tablet) 2 mg PO NOW ONE Stop: 10/31/22 18:34 Last Admin: 10/31/22 18:48 Dose: 2 mg Documented By: DENIZ Hydromorphone HCl (Hydromorphone Inj 1 Mg/Ml Syringe) 1 mg IV NOW STA Stop: 10/31/22 16:46 Last Admin: 10/31/22 17:13 Dose: 1 mg Documented By: DENIZ Ketorolac Tromethamine (Ketorolac Tromethamine 15 Mg/Ml Vial) 10 mg IV NOW ONE Stop: 10/31/22 18:23 Last Admin: 10/31/22 18:29 Dose: 10 mg Documented By: DENIZ Lidocaine (Lidocaine 5% 1 Patch) 1 patch TD NOW [facility] Stop: 10/31/22 18:23 Last Admin: 10/31/22 18:29 Dose: 1 patch Documented By: DENIZ Ondansetron HCl (Ondansetron Inj 2 Mg/Ml 2 Ml Vial) 4 mg IV NOW STA Stop: 10/31/22 16:46 Last Admin: 10/31/22 17:14 Dose: 4 mg Documented By: DENIZ Medical Decision Making Laboratory Data 10/31/22 16:50 10/31/22 16:50 Lab Results 10/31/22 10/31/22 10/31/22 Range/Units 16:50 16:50 16:50 WBC 9.54 (4.8-10.8) K/ul RBC 4.34 (4.20-5.40) M/uL Hgb 12.5 (12.0-16.0) g/dl Hct 36.7 L (37.0-47.0) % MCV 84.6 (80.0-100.0) fL MCH 28.8 (25.0-34.0) pg MCHC 34.1 (32.0-36.0) g/dL RDW Std Deviation 42.2 (36.4-46.3) fL RDW Coeff of Valeria 13.4 (11.5-14.5) % Plt Count 274 (130-400) K/uL MPV 10.3 (9.4-12.4) fL Immature Gran % (Auto) 0.6 % Neut % (Auto) 59.0 % Lymph % (Auto) 30.8 % [place] % (Auto) 8.2 % Eos % (Auto) 0.7 % Baso % (Auto) 0.7 % Neut # (Auto) 5.62 (1.40-6.50) K/uL Lymph # (Auto) 2.94 (1.2-3.4) K/uL [place] # (Auto) 0.78 H (0.11-0.59) K/uL Eos # (Auto) 0.07 (0-0.50) K/uL Baso # (Auto) 0.07 (0-0.2) K/uL Immature Gran # (Auto) 0.06 (0.01-0.20) K/uL Sodium 139 (136-145) mmol/L Potassium 3.8 (3.5-5.1) mmol/L Chloride 105 (98-107) mmol/L Carbon Dioxide 29 (21-32) mmol/L Anion Gap 5 (3-11) BUN 13 (6-23) mg/dl Creatinine 0.69 (0.6-1.2) mg/dl Est Cr Clr Drug Dosing Not Reportable Est GFR ( Amer) 117.6 ml/min Est GFR (Non-Af Amer) 101.5 ml/min BUN/Creatinine Ratio 18.8 (10-20) Glucose 82 (70-99(Fasting)) mg/dl Calcium 9.4 (8.6-10.3) mg/dl Total Bilirubin 0.4 (0.2-1.0) mg/dl AST 15 (13-39) U/L ALT 13 (7-52) U/L Alkaline Phosphatase 55 (34-104) U/L Total Protein 7.1 (6.0-8.3) gm/dl Albumin 4.4 (3.4-5.0) gm/dl Globulin 2.7 (2.5-4.0) gm/dl Albumin/Globulin Ratio 1.6 (0.9-2) HCG, Qual Negative (Negative) SARS-CoV-2, RNA, NAAT (NEGATIVE) 10/31/22 Range/Units 18:12 WBC (4.8-10.8) K/ul RBC (4.20-5.40) M/uL Hgb (12.0-16.0) g/dl Hct (37.0-47.0) % MCV (80.0-100.0) fL MCH (25.0-34.0) pg MCHC (32.0-36.0) g/dL RDW Std Deviation (36.4-46.3) fL RDW Coeff of Valeria (11.5-14.5) % Plt Count (130-400) K/uL MPV (9.4-12.4) fL Immature Gran % (Auto) % Neut % (Auto) % Lymph % (Auto) % [place] % (Auto) % Eos % (Auto) % Baso % (Auto) % Neut # (Auto) (1.40-6.50) K/uL Lymph # (Auto) (1.2-3.4) K/uL [place] # (Auto) (0.11-0.59) K/uL Eos # (Auto) (0-0.50) K/uL Baso # (Auto) (0-0.2) K/uL Immature Gran # (Auto) (0.01-0.20) K/uL Sodium (136-145) mmol/L Potassium (3.5-5.1) mmol/L Chloride (98-107) mmol/L Carbon Dioxide (21-32) mmol/L Anion Gap (3-11) BUN (6-23) mg/dl Creatinine (0.6-1.2) mg/dl Est Cr Clr Drug Dosing Est GFR ( Amer) ml/min Est GFR (Non-Af Amer) ml/min BUN/Creatinine Ratio (10-20) Glucose (70-99(Fasting)) mg/dl Calcium (8.6-10.3) mg/dl Total Bilirubin (0.2-1.0) mg/dl AST (13-39) U/L ALT (7-52) U/L Alkaline Phosphatase (34-104) U/L Total Protein (6.0-8.3) gm/dl Albumin (3.4-5.0) gm/dl Globulin (2.5-4.0) gm/dl Albumin/Globulin Ratio (0.9-2) HCG, Qual (Negative) SARS-CoV-2, RNA, NAAT NEGATIVE (NEGATIVE) Imaging Data Radiologist's Impression: Lumbar Spine MRI 10/31/22 16:45 MR lumbar spine wo con CLINICAL HISTORY: L leg weakness, L back pain, L leg numbness TECHNIQUE: Multiplanar sequences through the lumbar spine were obtained, without intravenous contrast. Comparison: Comparison is made to CT abdomen pelvis 11/13/2012 FINDINGS: The alignment is anatomical. L1-L2: No significant abnormality. L2-L3: Broad-based posterior disc bulge is seen without significant canal or neuroforaminal stenosis. L3-L4: No significant abnormality. L4-L5: No significant abnormality. L5-S1: Broad-based posterior disc bulge is seen. No significant canal or neuroforaminal stenosis The spinal ligaments are intact, without evidence of disruption or abnormal signal intensity. The spinal cord is normal in signal intensity and there is no evidence of cord contusion. There is no evidence of an extradural, intradural, extramedullary or intramedullary lesion. Visualized soft tissues are normal. A right renal cyst is noted. IMPRESSION: Multilevel degenerative changes without significant canal or neuroforaminal stenosis. ACT 112: Negative or not required by law. Electronically signed by: Kris Mares M.D. 10/31/2022 6:37 PM MDM Narrative Patient was seen and evaluated as above in room D03. Review was performed of triage nursing notes and vital signs. She presents to us today for assessment of discomfort to the left low back that radiates down her left leg. I did review the [facility] EMR through the help of our case management personnel. I did review the patient's most recent visit on 10/23/2022 where the patient underwent ultrasound-guided steroid injection to the trochanteric bursa on the left. After obtaining a thorough history and physical examination the above work up was performed. Options of care were discussed with the patient. IV access was established. Labs were drawn. Patient was medicated with IV Dilaudid for pain, Zofran for any potential nausea. She was sent to the MRI suite for MRI imaging of the L- spine as I do suspect her presentation and distribution of discomfort and symptoms are from lumbar radiculopathy. MRI results as above. At L2-L3 and L5- S1 there is a broad based posterior disc bulge. Labs reveal no leukocytosis or concerning anemia. No emergent metabolic disturbance. hCG negative. COVID testing negative. Patient has required several additional medications to help with her symptoms. Following Dilaudid she received IV Toradol, oral diazepam and IV dexamethasone. She was monitored on the pulse oximeter here. With the patient having ongoing low back discomfort with symptoms as noted above I do believe that further evaluation and management in the inpatient setting is warranted. I do not believe there is need for emergent L-spine surgery at the present time based on symptoms here and examination paired with her MRI, however, certainly trending her clinical course will be needed. Case discussed with the hospitalist service. Please refer to further documentation regarding her stay. While in the department, I personally reevaluated the patient several times and each time the patient was found to be resting comfortably. The patient was educated upon management, educated upon todays findings/results, educated upon importance of follow up from today's visit, educated upon symptoms in which to return, had questions answered prior to discharge, verbalized understanding, and was discharged home in good condition. Case was discussed with the attending physician. In the evaluation and treatment of this patient the following differential diagnosis entertained: Fracture, dislocation, subluxation, cauda equina syndrome, AAA, diverticulitis, appendicitis, torsion, osteomyelitis, piriformis syndrome, strain, sprain, among others. Impression & Plan Acute left lumbar radiculopathy Discharge Plan Visit Data Chief Complaint: Hip Pain Stated Complaint: LEFT HIP PAIN ED Provider: Addy Garduno ED Midlevel Provider: Robert Mercado Discharge Problem: Acute left lumbar radiculopathy Patient Disposition: Admitted As Inpatient Condition: Good Discharge Instructions Interventions: ED Discharge Assessment Last Done: 10/31/22 20:40
[2022-10-31 17:21] LABS: Basophils # (auto) 0.07 K/uL (0-0.2); Basophils % (auto) 0.7 %; Eosinophils # (auto) 0.07 K/uL (0-0.50); Eosinophils % (auto) 0.7 %; Hematocrit (blood only) 36.7 % (37.0-47.0); Hemoglobin 12.5 g/dl (12.0-16.0); Immature Granulocytes # (auto) 0.06 K/uL (0.01-0.20); Immature Granulocytes % (auto) 0.6 %; Lymphocytes # (auto) 2.94 K/uL (1.2-3.4); Lymphocytes % (auto) 30.8 %; Mean Corpuscular Hemoglobin 28.8 pg (25.0-34.0); Mean Corpuscular Hgb Conc 34.1 g/dL (32.0-36.0); Mean Corpuscular Volume 84.6 fL (80.0-100.0); Mean Platelet Volume 10.3 fL (9.4-12.4); Monocytes # (auto) 0.78 K/uL (0.11-0.59); Monocytes % (auto) 8.2 %; Neutrophils # (auto) 5.62 K/uL (1.40-6.50); Platelet Count 274 K/uL (130-400); RDW Coefficient of Variation 13.4 % (11.5-14.5); RDW Standard Deviation 42.2 fL (36.4-46.3); Red Blood Count 4.34 M/uL (4.20-5.40); White Blood Count 9.54 K/ul (4.8-10.8)
[2022-10-31 17:30] LABS: Alanine Aminotransferase 13 U/L (7-52); Albumin Globulin Ratio 1.6 (0.9-2); Albumin Level 4.4 gm/dl (3.4-5.0); Alkaline Phosphatase 55 U/L (34-104); Anion Gap 5 (3-11); Aspartate Aminotransferase 15 U/L (13-39); BUN Creatinine Ratio 18.8 (10-20); Bilirubin,Total 0.4 mg/dl (0.2-1.0); Blood Urea Nitrogen 13 mg/dl (6-23); Calcium 9.4 mg/dl (8.6-10.3); Carbon Dioxide 29 mmol/L (21-32); Chloride 105 mmol/L (98-107); Est GFR (African American) 117.6 ml/min; Est GFR (Non-African American) 101.5 ml/min; Globulin 2.7 gm/dl (2.5-4.0); Glucose 82 mg/dl (70-99(Fasting)); Potassium 3.8 mmol/L (3.5-5.1); Sodium 139 mmol/L (136-145); Total Protein 7.1 gm/dl (6.0-8.3)
[2022-10-31 17:34] LABS: Pregnancy Test, Serum Negative (Negative)
[2022-10-31] MEDS ORDERED: LIDOCAINE 5% 1 PATCH TD STA (18:22)
[2022-10-31] MEDS ORDERED: KETOROLAC TROMETHAMINE 15 MG/ML VIAL IV ONE (18:22)
[2022-10-31] MEDS ORDERED: dexAMETHasone**PF** 10 MG/ML VIAL IV ONE (18:22)
[2022-10-31] MEDS ORDERED: diazePAM 2 MG TABLET PO ONE (18:33)
--- NOTE | 2022-10-31 18:38 | Magnetic Resonance Report ---
MR lumbar spine wo con CLINICAL HISTORY: L leg weakness, L back pain, L leg numbness TECHNIQUE: Multiplanar sequences through the lumbar spine were obtained, without intravenous contrast . Comparison: Comparison is made to CT abdomen pelvis 11/13/2012 FINDINGS: The alignment is anatomical. L1-L2: No significant abnormality. L2-L3: Broad-based posterior disc bulge is seen without significant canal or neuroforaminal stenosis. L3-L4: No significant abnormality. L4-L5: No significant abnormality. L5-S1: Broad-based posterior disc bulge is seen. No significant canal or neuroforaminal stenosis The spinal ligaments are intact, without evidence of disruption or abnormal signal intensity. The spi nal cord is normal in signal intensity and there is no evidence of cord contusion. There is no eviden ce of an extradural, intradural, extramedullary or intramedullary lesion. Visualized soft tissues are normal. A right renal cyst is noted. IMPRESSION: Multilevel degenerative changes without significant canal or neuroforaminal stenosis. ACT 112: Negative or not required by law. Electronically signed by: Kris Mares M.D. 10/31/2022 6:37 PM
--- NOTE | 2022-10-31 20:20 | History & Physical Report ---
Date of Service October 31, 2022 Assessment & Plan (1) Acute left lumbar radiculopathy: (2) Depression: Plan Acute left lumbar radiculopathy with left sciatica- details as above, ongoing for 4 weeks, s/p left trochanteric injection without relief, acutely worsened today. No cauda equina syndome, no red flag signs identified. MRI L spine reviewed as above - will place in obs, pain management, iv steroids, tylenol, lidocaine patch, heat prn, oxy prn, flexeril prn. Ortho consult. PT/OT eval. Might need pain management eval too. 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 Denies any preceding trauma. Having left hip pain for past 4 weeks and has been evaluated by chiropractor and orthopedics-she was thought to have trochanteric bursitis and had steroid injections in the trochanteric bursa a week ago which did not help. She continued to have pain but was able to walk around without need for cane or walker. Her pain was acutely worsened today and she was unable to walk with prompted her to come to the emergency. The hip pain starts in her left buttock and radiates to her left foot, also has been having numbness in her left foot. Denies any bladder or bowel incontinence. No fever or chills. No similar events in the past. She does not smoke or drink alcohol. Denies drug abuse. She took 600 mg of ibuprofen at home today. In the ED, she was given Dilaudid the feeling of which she did not like. She was given steroid, valium and Toradol which seemed to help. Allergies Allergy/AdvReac Type Severity Reaction Status Date / Time No Known Drug Allergies Allergy Verified 10/31/22 18:31 Home Medications Medication Instructions Recorded Confirmed Type aspirin 81 mg tablet,delayed 81 mg PO DAILY 12/30/18 10/31/22 History release atorvastatin 10 mg tablet 10 mg PO DAILY #90 tabs 11/29/19 10/31/22 Rx sertraline 100 mg tablet 100 mg PO DAILY #90 tabs 03/22/20 10/31/22 Rx levothyroxine 50 mcg tablet 50 mcg PO QAM 10/31/22 10/31/22 History losartan 25 mg tablet 25 mg PO DAILY 10/31/22 10/31/22 History omega-3 fatty acids 1,250 mg 1,250 mg PO DAILY 10/31/22 10/31/22 History capsule Past Med/Surg History Medical History Beta-hemolytic Streptococcus carrier (07/12/14) Dehydration Elderly multigravida with antepartum condition or complication Gestational diabetes HLD (hyperlipidemia) Polycystic ovarian syndrome Post depression Supervision of other normal Syncope Viral illness Surgical History S/P wisdom tooth extraction Family History Father Hypertension Hyperlipidemia Grandfather Coronary heart disease Grandmother Uterine cancer Grandfather Prostate cancer Sister Thalassemia Brother Klinefelter syndrome Other Dyslipidemia Seizure Denies family history of Ovarian cancer Breast cancer Colorectal cancer Social History Smoking Status: Never smoker Second Hand Exposure: No; Do You Dip or Chew Tobacco: No; Hx Alcohol Use: No Hx Substance Use: No Preferred Language: Scottish Communication Ability: Effective Cook Soup Required: No Beliefs That Will Affect Care: None marital status: Current Living Situation: Spouse and Family Feels Safe at Home: Yes Assistive Devices: None Review of Systems Review of Systems: All systems reviewed & are unremarkable except as noted in Subjective Physical Exam Physical Exam: General: Lying in bed, not in acute distress, on room air HEENT: EOMI, SOILA, MMM Chest: Clear breath sounds bilaterally, no wheezes or crackles CVS: Regular rate and rhythm, normal heart sounds, no murmur Abdomen: Soft, non tender, not distended, normal bowel sounds Neuro: Awake, alert, orientedx3, conversing well, non focal except for below Extremities: No cyanosis, clubbing or edema MSK: No tenderness on palpation of back/midlline however tender spot + on left buttock. Strength and ROM limited in LLE due to pain however left foot strength normal. Decreased sensation on left foot compared to the right. SLRT + on left. Results & Data Results & Data Vital Signs (Past 12 Hours) Vital Signs Temp Pulse Resp BP Pulse Ox O2 Del Method 10/31/22 16:01 36.8 C 88 18 129/77 97 Room Air Laboratory Results Short CBC 10/31/22 Range/Units 16:50 WBC 9.54 (4.8-10.8) K/ul Hgb 12.5 (12.0-16.0) g/dl Hct 36.7 L (37.0-47.0) % Plt Count 274 (130-400) K/uL BMP 10/31/22 16:50 Sodium 139 Potassium 3.8 Chloride 105 Carbon Dioxide 29 BUN 13 Creatinine 0.69 Glucose 82 Calcium 9.4 Liver Function 10/31/22 Range/Units 16:50 Total Bilirubin 0.4 (0.2-1.0) mg/dl AST 15 (13-39) U/L ALT 13 (7-52) U/L Alkaline Phosphatase 55 (34-104) U/L Albumin 4.4 (3.4-5.0) gm/dl Diagnostic Findings Lumbar Spine MRI 10/31/22 16:45 MR lumbar spine wo con CLINICAL HISTORY: L leg weakness, L back pain, L leg numbness TECHNIQUE: Multiplanar sequences through the lumbar spine were obtained, without intravenous contrast. Comparison: Comparison is made to CT abdomen pelvis 11/13/2012 FINDINGS: The alignment is anatomical. L1-L2: No significant abnormality. L2-L3: Broad-based posterior disc bulge is seen without significant canal or neuroforaminal stenosis. L3-L4: No significant abnormality. L4-L5: No significant abnormality. L5-S1: Broad-based posterior disc bulge is seen. No significant canal or neuroforaminal stenosis The spinal ligaments are intact, without evidence of disruption or abnormal signal intensity. The spinal cord is normal in signal intensity and there is no evidence of cord contusion. There is no evidence of an extradural, intradural, extramedullary or intramedullary lesion. Visualized soft tissues are normal. A right renal cyst is noted. IMPRESSION: Multilevel degenerative changes without significant canal or neuroforaminal stenosis. ACT 112: Negative or not required by law. Electronically signed by: Kris Mares M.D. 10/31/2022 6:37 PM
[2022-10-31] MEDS ORDERED: POLYETHYLENE (MIRALAX) 17 GM PACK PO PRN (20:53)
[2022-10-31] MEDS ORDERED: oxyCODONE HCL IR 5 MG TAB (IMMEDIATE RELEASE) PO PRN ×2 (20:53)
[2022-10-31] MEDS: SERTRALINE HCL 100 MG TABLET PO SCH (21:44)
[2022-10-31] MEDS: LOSARTAN POTASSIUM 25 MG TAB PO SCH (21:44)
[2022-10-31] MEDS: dexAMETHasone 8 MG in SYRINGE 0 ML IV SCH (21:44)
[2022-10-31] MEDS: ATORVASTATIN 10 MG TAB PO SCH (21:45)
[2022-10-31] MEDS: ASPIRIN 81 MG ECTAB PO SCH (21:45)
[2022-10-31] MEDS: ACETAMINOPHEN 500 MG TAB PO SCH (21:46)
[2022-11-01 00:07] LABS: Appearance Urine Clear (Clear); Bilirubin Urine Negative (Negative); Blood Urine Negative (Negative); Color Urine Yellow; Glucose Urine UA 2+ (Negative); Ketones Urine Negative (Negative); Leukocyte Esterase Urine Negative (Negative); Nitrite Urine Negative (Negative); Protein Urine Negative (Negative); Specific Gravity Urine 1.034 (1.000-1.030); Urobilinogen Urine Negative (Negative)
[2022-11-01] MEDS: LEVOTHYROXINE SODIUM 50 MCG TABLET PO SCH (06:11)
[2022-11-01] MEDS: dexAMETHasone 8 MG in SYRINGE 0 ML IV SCH ×3 (06:11→21:19)
[2022-11-01] MEDS: ACETAMINOPHEN 500 MG TAB PO SCH ×3 (06:11→21:18)
[2022-11-01 06:56] LABS: Hematocrit (blood only) 37.6 % (37.0-47.0); Hemoglobin 12.3 g/dl (12.0-16.0); Mean Corpuscular Hemoglobin 28.5 pg (25.0-34.0); Mean Corpuscular Hgb Conc 32.7 g/dL (32.0-36.0); Mean Corpuscular Volume 87.2 fL (80.0-100.0); Mean Platelet Volume 10.2 fL (9.4-12.4); Platelet Count 263 K/uL (130-400); RDW Coefficient of Variation 13.5 % (11.5-14.5); RDW Standard Deviation 42.5 fL (36.4-46.3); Red Blood Count 4.31 M/uL (4.20-5.40); White Blood Count 8.67 K/ul (4.8-10.8)
[2022-11-01 07:03] LABS: BUN Creatinine Ratio 27.9 (10-20); Calcium 9.1 mg/dl (8.6-10.3); Creatinine Clr Calc Pharmacy 134.6 ml/min; Est GFR (African American) 122.5 ml/min; Est GFR (Non-African American) 105.7 ml/min; Potassium 4.3 mmol/L (3.5-5.1)
[2022-11-01] MEDS: LIDOCAINE 5% 1 PATCH TD SCH (07:31)
[2022-11-01] MEDS: PANTOprazole 40 MG TAB PO SCH (07:32)
[2022-11-01] MEDS: ENOXAPARIN INJ 40 MG/0.4 ML SYR SQ SCH (07:32)
[2022-11-01] MEDS: CYCLOBENZAPRINE HCL 5 MG TAB PO PRN (08:40)
--- NOTE | 2022-11-01 10:38 | Orthopedic Consultation ---
Date of Consultation November 01, 2022 Assessment & Plan (1) Lumbar disc herniation with radiculopathy: MRI of the lumbar spine is available for review performed yesterday at [facility] [place]. It demonstrates evidence of advanced degenerative change L5-S1 broad-based disc herniation and encroachment of the traversing nerve roots left greater than right. Of greater importance is the L4-L5 level. I believe there is a herniated disc on the left with a fragment migrating caudally with significant displacement of the traversing root. This is most likely etiology of her radiculopathy. I discussed treatment options. At this point I recommend a consultation with pain management for trial of epidural injections. If she fails to respond she may be a candidate for lumbar laminotomy partial discectomy. She understands and agrees. History of Present Illness Reason for Consultation: Left sciatica Attending Physician: Connie Escobar MD History of Present Illness This is a very pleasant 52-year-old female who presents with a history of chronic persistent back pain that has not experienced marked decline over the past several weeks. She is undergone caregivers homecare as well as a trochanteric injection without improvement. The pain is involved the left buttock posterior lateral thigh below the knee into the anterior lower leg. Markedly worse with activity. The right lower extremity is asymptomatic. 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 Allergies Allergy/AdvReac Type Severity Reaction Status Date / Time No Known Drug Allergies Allergy Verified 10/31/22 18:31 Home Medications Medication Instructions Recorded Confirmed Type aspirin 81 mg tablet,delayed 81 mg PO DAILY 12/30/18 10/31/22 History release atorvastatin 10 mg tablet 10 mg PO DAILY #90 tabs 11/29/19 10/31/22 Rx sertraline 100 mg tablet 100 mg PO DAILY #90 tabs 03/22/20 10/31/22 Rx levothyroxine 50 mcg tablet 50 mcg PO QAM 10/31/22 10/31/22 History losartan 25 mg tablet 25 mg PO DAILY 10/31/22 10/31/22 History omega-3 fatty acids 1,250 mg 1,250 mg PO DAILY 10/31/22 10/31/22 History capsule Patient History Medical History Beta-hemolytic Streptococcus carrier (01/22/15) Dehydration Elderly multigravida with antepartum condition or complication Gestational diabetes HLD (hyperlipidemia) Polycystic ovarian syndrome Post depression Supervision of other normal Syncope Viral illness Surgical History S/P wisdom tooth extraction Family History Father Hypertension Hyperlipidemia Grandfather Coronary heart disease Grandmother Uterine cancer Grandfather Prostate cancer Sister Thalassemia Brother Klinefelter syndrome Other Dyslipidemia Seizure Denies family history of Ovarian cancer Breast cancer Colorectal cancer Social History Smoking Status: Never smoker Second Hand Exposure: No; Do You Dip or Chew Tobacco: No; Tobacco Cessation Education Requested by Patient: No Hx Alcohol Use: No Hx Substance Use: No Preferred Language: Ugandan Communication Ability: Effective Receptionist Secretary Required: No Beliefs That Will Affect Care: None marital status: Current Living Situation: Family Other Information That Helps Us Care for You: No Feels Safe at Home: Yes Safety Concerns: Feels Safe At This Time Assistive Devices: Glasses Assistive Devices Comment: reading glasses Physical Exam Physical Exam: On exam she is comfortable in bed. She has marked tension signs straight leg raising on the left compared to the right. She has symmetric +55 plantarflexion dorsiflexion extensor pollicis longus. Sensory appears to be intact. She does have Lidoderm patches on her leg. Results & Data Vital Signs (Past 12 Hours) Vital Signs Temp Pulse Resp BP Pulse Ox O2 Del Method 11/01/22 08:00 36.8 C 88 16 160/88 H 18 L Room Air
[2022-11-01] MEDS ORDERED: oxyCODONE HCL IR 5 MG TAB (IMMEDIATE RELEASE) PO PRN (11:03)
[2022-11-01] MEDS: KETOROLAC TROMETHAMINE 15 MG/ML VIAL IV PRN ×2 (12:11→17:57)
--- NOTE | 2022-11-01 12:23 | Hospitalist Progress Note ---
Date of Service November 01, 2022 Assessment & Plan (1) Acute left lumbar radiculopathy: (2) Depression: Plan Acute left lumbar radiculopathy with left sciatica Ongoing for 4 weeks, s/p left trochanteric injection without relief Acutely worsened leading to presentation. MRI reviewed. Ortho surgeon noted advance degenerative changes L5-S1 disc herniation and encroachment in nerve roots left more than right Patient reports better pain relief with toradol compared to opioids Pain management consulted IV ketorolac for now PT/OT eval Will need follow up with Pain management outpatient for ongoing care as well Depression Continue home zoloft HLD Continue lipitor Hypothyroid Continue synthroid DVT ppx- Sc lovenox Dispo- Obs Full code I spent a total of 40 minutes coordinating, documenting and providing care for this patient excluding time spent in performance of separately billed services Admission and Anticipated Discharge Date Admission Date: October 31, 2022 Subjective Patient seen and examined Reports low back pain that go down the left leg Has numbness in left feet Denied any bowel/bladder incontinence Denied constipation. Denied other symptoms Physical Exam Constitutional: + well hydrated and + obese; no acute distress Eyes: PERRL, conjunctivae normal, anicteric sclerae ENMT: external ear and nose normal, oropharynx normal Respiratory: normal respiratory effort, lungs clear to auscultation Cardiovascular: Rate/Rhythm: regular rate and regular rhythm S1 S2 Gastrointestinal (Abdomen): normal bowel sounds, soft, nontender, no hepatosplenomegaly Musculoskeletal: no cyanosis or clubbing, extremities motor strength 5/5 No pedal edema. Neurologic: PERRL, EOMI, accommodation nl, no face palsy, no dysarthria Results & Data Results & Data Vital Signs (Past 12 Hours) Vital Signs Temp Pulse Resp BP Pulse Ox O2 Del Method 11/01/22 08:00 36.8 C 88 16 160/88 H 94 Room Air Laboratory Results Abnormal lab results 10/31/22 11/01/22 11/01/22 Range/Units 16:50 00:00 05:59 Hct 36.7 L (37.0-47.0) % [place] # (Auto) 0.78 H (0.11-0.59) K/uL BUN/Creatinine Ratio 27.9 H (10-20) Glucose 161 H (70-99(Fasting)) mg/dl Ur Specific [place] 1.034 H (1.000-1.030) Urine Glucose (UA) 2+ H (Negative)
[2022-11-01] MEDS: ASPIRIN 81 MG ECTAB PO SCH (20:49)
[2022-11-01] MEDS: ATORVASTATIN 10 MG TAB PO SCH (20:49)
[2022-11-01] MEDS: SERTRALINE HCL 100 MG TABLET PO SCH (20:50)
[2022-11-01] MEDS: LOSARTAN POTASSIUM 25 MG TAB PO SCH (20:50)
[2022-11-02] MEDS: ACETAMINOPHEN 500 MG TAB PO SCH ×2 (06:03→13:49)
[2022-11-02] MEDS: LEVOTHYROXINE SODIUM 50 MCG TABLET PO SCH (06:04)
[2022-11-02] MEDS: dexAMETHasone 8 MG in SYRINGE 0 ML IV SCH (06:05)
[2022-11-02] MEDS ORDERED: methylPREDNISolone 4 MG TAB, 6 DAY TAPER PO SCH (08:45)
--- NOTE | 2022-11-02 08:50 | Pain Management Consultation ---
Date of Consultation November 02, 2022 Assessment & Plan (1) Lumbar disc herniation with radiculopathy: (2) Morbid obesity: Plan 1. Recommend left paramedian L5-S1 interlaminar epidural steroid injection at this time. We discussed the risk, benefits, expectations and patient agrees to proceed. This will be performed on 11/04/2022 at 8:00 in the morning at the [facility] pain management office. Patient has already received her preprocedure instructions and appointment time. Patient is eager for discharge at this time and she feels she has functionally improved and is able to ambulate with a walker. 2. Recommend conversion from IV steroids to Medrol Dosepak, orders written 3. Recommend gabapentin 300 mg p.o. twice daily, orders written 4. Recommend conversion from IV Toradol to meloxicam 15 mg p.o. every morning., Orders written 5. Patient may utilize oxycodone should above regimen fail to minimize pain. 6. Thank you very much for this consultation. We will follow-up with the patient on 11/04/2022 at 8:00 in the morning as an outpatient. Please call with any questions. History of Present Illness Reason for Consultation: Acute left lumbar radiculopathy Attending Physician: Connie Escobar MD History of Present Illness 52-year-old female who presented to the [facility] emergency room on 10/31/2022 with acute left-sided lumbar radiculopathy for 4 weeks. She states that she has had chronic axial only low back pain for many years worsened while on a cruise approximately 2 months ago. She denies any recent trauma but states that she has been experiencing left-sided axial low back pain with radiation at her lateral gastroc to the dorsum of her foot for the past 4 weeks. She has been utilizing rest, oral steroids, chiropractic without relief. She saw [facility] orthopedics who performed a left trochanteric bursa injection in their office approximately 2 weeks ago without relief. On 10/31/2022 she felt that her pain had worsened and felt difficulty ambulating secondary to pain and thus presented to the emergency room. She reports pain worsened with ambulation and improves slightly with rest. She denies any bowel or bladder incontinence, motor weakness, foot drop, fever, chills, saddle anesthesia, night sweats. Well admitted she received IV steroids, Tylenol, Lidoderm patch, heat, oxycodone, Flexeril with benefit. Patient reports she is now able to ambulate with a walker and feels improved however still has sharp shooting 5 out of 10 pain left-sided only ranging between 3-5 out of 10. She would like consideration of epidural steroid injections at this time. She had surgical evaluation by Dr. Santos who recommended conservative measures and consideration of laminectomy and partial discectomy should she fail more conservative management. Patient agreeable. 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 She reports that she sits for majority of the day. Pain Assessment Full Body Front + Back: 1. 2. [facility] Combined Pain Scale: 5-Moderate - Cannot perform normal tasks without increase in pain Pain scale - at its best (0-10): 3 Pain scale - at its worst (0-10): 5 Allergies Allergy/AdvReac Type Severity Reaction Status Date / Time No Known Drug Allergies Allergy Verified 10/31/22 18:31 Home Medications Medication Instructions Recorded Confirmed Type aspirin 81 mg tablet,delayed 81 mg PO DAILY 12/30/18 10/31/22 History release atorvastatin 10 mg tablet 10 mg PO DAILY #90 tabs 11/29/19 10/31/22 Rx sertraline 100 mg tablet 100 mg PO DAILY #90 tabs 03/22/20 10/31/22 Rx levothyroxine 50 mcg tablet 50 mcg PO QAM 10/31/22 10/31/22 History losartan 25 mg tablet 25 mg PO DAILY 10/31/22 10/31/22 History omega-3 fatty acids 1,250 mg 1,250 mg PO DAILY 10/31/22 10/31/22 History capsule Pain History Pain Intensity Pain scale - at its best (0-10): 3 Pain scale - at its worst (0-10): 5 Patient History Medical History (Updated 11/02/22 @ 08:42 by Maria Isabel Galvan DO) Beta-hemolytic Streptococcus carrier (07/12/14) Dehydration Elderly multigravida with antepartum condition or complication Gestational diabetes HLD (hyperlipidemia) Morbid obesity Polycystic ovarian syndrome Post depression Supervision of other normal Syncope Viral illness Surgical History S/P wisdom tooth extraction Family History Father Hypertension Hyperlipidemia Grandfather Coronary heart disease Grandmother Uterine cancer Grandfather Prostate cancer Sister Thalassemia Brother Klinefelter syndrome Other Dyslipidemia Seizure Denies family history of Ovarian cancer Breast cancer Colorectal cancer Social History Smoking Status: Never smoker Second Hand Exposure: No; Do You Dip or Chew Tobacco: No; Tobacco Cessation Education Requested by Patient: No Hx Alcohol Use: No Hx Substance Use: No Preferred Language: Azeri Communication Ability: Effective Account Financial Manager Required: No Beliefs That Will Affect Care: None marital status: Current Living Situation: Family Other Information That Helps Us Care for You: No Feels Safe at Home: Yes Safety Concerns: Feels Safe At This Time Assistive Devices: Glasses Assistive Devices Comment: reading glasses Physical Exam Physical Exam: Constitutional: Well-developed, well-nourished, healthy-appearing, morbid obesity Psych: Awake, alert, and oriented 3 with normal affect and mood. Recent memory appears grossly intact. Calm and cooperative on examination Eyes: Pupils are equally round and reactive to light with normal size pupils, eyelids appear normal Ear, nose, mouth, and throat: Moist nasal and oral membranes, lips and tongues appear normal, no external ear abnormalities are noted Neck: The trachea is midline without deviation and no thyromegaly is noted Respiratory: Normal respiratory effort without distress, no audible wheezes or rhonchi CV: Normal S1 and S2, 2+ dorsalis pedis pulses Chest: Deferred GI/abdomen: Protuberant Musculoskeletal: Head is normocephalic and atraumatic, gait not observed, able to move easily in bed though Cervical: Lordotic curve: Normal Range of motion is normal with extension, flexion, side-bending, rotation Strength: Strength is grossly equal bilaterally with 5 out of 5 strength in all planes Lumbar: Lordotic curve: Exaggerated lordotic curve Range of motion is decreased in all pain secondary to body habitus and pain Tenderness: Moderately tender over the axial midline worst over L5-S1 left greater than right Facet provocation: Positive bilaterally Straight leg raise: Negative on the right positive on the left worse with Achilles stretch Step-off injuries: None Strength: Strength is equal bilaterally with 5 out of 5 strength in all planes Sensation of lower extremities: Intact on the right decreased sensation left lateral gastroc and dorsum of foot Deep tendon reflexes: Rated at 2+ in bilateral L4 and S1 Myofascial spasm: Minimal lumbar spasm. No discrete trigger points noted Greater trochanters: Minimally tender bilaterally Sacroiliac joints: Minimally tender bilaterally Pathologic reflexes noted: None Skin: No rashes, lesions, ulcers, or induration noted Neuro: No nystagmus noted, the tongue is midline, the patient is able to rotate their head bilaterally : Deferred Results (Pain Clinic) Laboratory Review Laboratory results: personally reviewed by me and no pertinent findings Diagnostic Review MRI: non enhanced, reports reviewed, images reviewed and findings discussed with patient MRI Findings: 10/31/22 MR lumbar spine wo con CLINICAL HISTORY: L leg weakness, L back pain, L leg numbness TECHNIQUE: Multiplanar sequences through the lumbar spine were obtained, without intravenous contrast. Comparison: Comparison is made to CT abdomen pelvis 11/13/2012 FINDINGS: The alignment is anatomical. L1-L2: No significant abnormality. L2-L3: Broad-based posterior disc bulge is seen without significant canal or barbara roforaminal stenosis. L3-L4: No significant abnormality. L4-L5: No significant abnormality. L5-S1: Broad-based posterior disc bulge is seen. No significant canal or neuroforaminal stenosis The spinal ligaments are intact, without evidence of disruption or abnormal signal intensity. The spinal cord is normal in signal intensity and there is no evidence of cord contusion. There is no evidence of an extradural, intradural, extramedullary or intramedullary lesion. Visualized soft tissues are normal. A right renal cyst is noted. IMPRESSION: Multilevel degenerative changes without significant canal or neuroforaminal stenosis. Per my read would note the additional findings below there is a broad-based disc herniation at L5-S1 with encroachment of left greater than right traversing roots L4-5 disc herniation to the left with caudad migration.
[2022-11-02] MEDS: PANTOprazole 40 MG TAB PO SCH (08:57)
[2022-11-02] MEDS: CYCLOBENZAPRINE HCL 5 MG TAB PO PRN (08:57)
[2022-11-02] MEDS: ENOXAPARIN INJ 40 MG/0.4 ML SYR SQ SCH ×2 (08:58→09:00)
[2022-11-02] MEDS: LIDOCAINE 5% 1 PATCH TD SCH (08:58)
[2022-11-02 08:59] LABS: BUN Creatinine Ratio 28.3 (10-20); Calcium 8.6 mg/dl (8.6-10.3); Creatinine Clr Calc Pharmacy 154.9 ml/min; Est GFR (African American) 128.3 ml/min; Est GFR (Non-African American) 110.7 ml/min; Potassium 4.1 mmol/L (3.5-5.1)
[2022-11-02] MEDS ORDERED: GABAPENTIN 300 MG CAP PO SCH (09:00)
[2022-11-02] MEDS ORDERED: MELOXICAM 7.5 MG TAB PO SCH (09:00)
[2022-11-02] MEDS ORDERED: methylPREDNISolone 4 MG TAB PO SCH ×2 (13:00→21:00)
--- NOTE | 2022-11-02 14:41 | Hospitalist Progress Note ---
Date of Service November 02, 2022 Assessment & Plan Admission and Anticipated Discharge Date Admission Date: October 31, 2022 Results & Data Results & Data Vital Signs (Past 12 Hours) Vital Signs Temp Pulse Resp BP Pulse Ox O2 Del Method 11/02/22 08:00 Room Air 11/02/22 07:47 36.6 C 80 16 107/70 97 Room Air
--- NOTE | 2022-11-02 17:24 | Discharge Summary ---
Date of Service November 02, 2022 Admission HPI Per Admitting Provider 52-year-old female with history of hypertension, hypothyroidism, gestational diabetes who presented to ED with left hip pain for 4 weeks, acutely worsened today and unable to walk. Denies any preceding trauma. Having left hip pain for past 4 weeks and has been evaluated by chiropractor and orthopedics-she was thought to have trochanteric bursitis and had steroid injections in the trochanteric bursa a week ago which did not help. She continued to have pain but was able to walk around without need for cane or walker. Her pain was acutely worsened today and she was unable to walk with prompted her to come to the emergency. The hip pain starts in her left buttock and radiates to her left foot, also has been having numbness in her left foot. Denies any bladder or bowel incontinence. No fever or chills. No similar events in the past. She does not smoke or drink alcohol. Denies drug abuse. She took 600 mg of ibuprofen at home today. In the ED, she was given Dilaudid the feeling of which she did not like. She was given steroid, valium and Toradol which seemed to help. Admission Exam Per Admitting Provider General: Lying in bed, not in acute distress, on room air HEENT: EOMI, SOILA, MMM Chest: Clear breath sounds bilaterally, no wheezes or crackles CVS: Regular rate and rhythm, normal heart sounds, no murmur Abdomen: Soft, non tender, not distended, normal bowel sounds Neuro: Awake, alert, orientedx3, conversing well, non focal except for below Extremities: No cyanosis, clubbing or edema MSK: No tenderness on palpation of back/midlline however tender spot + on left buttock. Strength and ROM limited in LLE due to pain however left foot strength normal. Decreased sensation on left foot compared to the right. SLRT + on left. Principal Diagnosis Lumbar disc herniation with radiculopathy Ambulatory dysfunction Discharge Exam Constitutional + well hydrated and + obese; no acute distress Eyes PERRL, conjunctivae normal, anicteric sclerae ENMT external ear and nose normal, oropharynx normal Respiratory normal respiratory effort, lungs clear to auscultation Cardiovascular Rate/Rhythm: regular rate and regular rhythm S1 S2 Gastrointestinal (Abdomen) normal bowel sounds, soft, nontender, no hepatosplenomegaly Musculoskeletal no cyanosis or clubbing, extremities motor strength 5/5 Neurologic PERRL, EOMI, accommodation nl, no face palsy, no dysarthria Psychiatric A+Ox3, euthymic affect Discharge Data Allergies Allergy/AdvReac Type Severity Reaction Status Date / Time No Known Drug Allergies Allergy Verified 10/31/22 18:31 Consultations 10/31/22 19:27 ED Decision to Admit Stat 10/31/22 20:04 Consult Orthopedic Surgery Routine 11/01/22 10:38 Consult Pain Management Routine Ordered Studies 10/31/22 16:45 MR lumbar spine wo con Stat Hospital Course (1) Acute left lumbar radiculopathy: (2) Depression: Plan Acute left lumbar radiculopathy with left sciatica Ongoing for 4 weeks, s/p left trochanteric injection without relief Acutely worsened leading to presentation. MRI reviewed. Ortho surgeon noted advance degenerative changes L5-S1 disc herniation and encroachment in nerve roots left more than right Patient was seen by Pain management Pain is better controlled today Was seen by PT/OT and provided a walker Discharged on meloxicam 15mg daily, gababentin 300mg bid, tylenol, oxycodone prn for severe pain Discharged on medrol dose gage Patient is to follow up with Pain management outpatient Started on prilosec while on meloxicam Depression Continue home zoloft HLD Continue lipitor Hypothyroid Continue synthroid Total Time Total Time Spent Total Time Spent (In Minutes): 45 Total Time Includes: Examination of the Patient, Discharge Planning and Medication Reconciliation Discharge Plan Discharge Items Patient Disposition: Home - Self-Care Reason For Visit: LEFT HIP PAIN, UNABLE TO WALK Discharge Diagnosis: Lumbar disc herniation with radiculopathy Ambulatory dysfunction Condition on Discharge: Good Activity: Resume your previous activity Activity Comment: Use walker as discussed Non-emergency contact: Primary Care Provider and Pain Management Call non-emergency contact if: you have any medication questions and your sympto ms worsen Follow-up/Referrals: Gage Alvares MD [Primary Care Provider] - (Date & Time 11/06/2022 11:00 AM Provider [facility] Department [facility] ) Diet: Heart Healthy and Low Fat Addtl Attending Provider Instructions: Mrs Neri You came to the hospital complaining of worsening low back pain going down your leg. You were evaluated You are being discharged on the following medications: - Please use tylenol as needed for mild pain - Take meloxicam daily - Take gabapentin 300mg twice a day - You can use oxycodone only for severe pain not controlled with aforementioned medications. - Take prilosec while on meloxicam - Take medrol dose gage as instructed (4mg methyl prednisone: as follows Day 1 which is Today- 1 tab after lunch and after supper, 2 tabs at bedtime Day 2: 1 tab before breakfast, 1 tab after lunch and after supper, 2 tabs at bedtime Day 3: 1 tab before breakfast, 1 tab after lunch , after supper and at bedtime Day 4: 1 tab before breakfast, after lunch and at bedtime Day 5: 1 tab before breakfast and at bedtime Day 6: 1 tab before breakfast Please ensure follow up with Pain management outpatient Continue follow up with your Primary Doctor. It was a pleasure taking care of you. Pending Studies at Discharge: No Stand-Alone Forms: My [facility], Smoking Cessation Medications and DC Order Prescriptions: New oxycodone 5 mg Tablet 5 mg PO Q6H PRN (Reason: Severe pain) Qty: 20 0RF acetaminophen [Tylenol Extra Strength] 500 mg Tablet 1,000 mg PO Q8H Qty: 60 0RF gabapentin 300 mg Capsule 300 mg PO BID Qty: 60 0RF methylprednisolone [Methylpred DP] 4 mg tablets,dose pack See Rx Instructions .ROUTE .COMPLEX Qty: 21 0RF Rx Instructions: Please follow instructions on the gage as we discussed omeprazole 20 mg capsule,delayed release(DR/EC) 20 mg PO DAILY Qty: 30 0RF meloxicam 7.5 mg tablet 15 mg PO DAILY Qty: 60 0RF Continued atorvastatin 10 mg tablet 10 mg PO DAILY Qty: 90 0RF sertraline 100 mg tablet 100 mg PO DAILY Qty: 90 1RF aspirin 81 mg Tablet,Delayed Release (Dr/Ec) 81 mg PO DAILY levothyroxine 50 mcg Tablet 50 mcg PO QAM losartan 25 mg Tablet 25 mg PO DAILY omega-3 fatty acids 1,250 mg Capsule 1,250 mg PO DAILY Discharge Orders: Discharge Order (Routine); Ordered 11/02/22 Ordered By: Connie Escobar Admission Data Admit Date/Time: 10/31/22 20:04 Attending Provider: Connie Escobar I. Admit Provider: Harry Cortez Primary Care Provider: Gage Alvares Other Providers: Rayshawn Santos ; Harry Cortez ; Maria Isabel Galvan Other Interventions: Discharge Summary Assessment (RN) Last Done: 11/02/22 14:43
[2022-11-03] MEDS ORDERED: methylPREDNISolone 4 MG TAB PO SCH ×2 (07:00→21:00)
[2022-11-04] MEDS ORDERED: methylPREDNISolone 4 MG TAB PO SCH (07:00)
[2022-11-05] MEDS ORDERED: methylPREDNISolone 4 MG TAB PO SCH (07:00)
[2022-11-06] MEDS ORDERED: methylPREDNISolone 4 MG TAB PO SCH (07:00)
[2022-11-07] MEDS ORDERED: methylPREDNISolone 4 MG TAB PO SCH (07:00)
== END 2022-11-02 16:46 | disposition home or self-care (01) ==
LOC: ED 15:49 → 3W 15:49 → SUATTDRO 20:04 → 3W 20:40